=== PATIENT | female | born 1970 | race African-American/Black ===

== ENCOUNTER 2019-05-27 22:07 | Inpatient (IN) | payer BC ==
[2019-05-27] MEDS ORDERED: Adacel (T-DAP) 0.5 ML SYRINGE ONE (22:24)
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
[2019-05-27 22:49] LABS: #Eosinphils 0.2 thou/uL (0.0-0.7); #Lymphocytes 3.8 thou/uL (1.20-3.40); #Neutrophils 10.1 thou/uL (1.40-6.50); %Basophils 0.3 % (0.0-1.0); %Eosinophils 1.3 % (0.0-10.0); %Lymphocytes 25.2 % (21.0-51.0); %Monocytes 6.5 % (0.0-10.0); %Neutrophils 66.7 % (42.0-75.0); Hemoglobin 10.4 g/dL (12.0-16.0); Mean Corpuscular HGB CONC 32.7 g/dL (32.0-36.0); Mean Corpuscular Hemoglobin 24.3 pg (27.0-31.0); Mean Corpuscular Volume 74.3 fL (78.0-98.0); Mean Platelet Volume 8.2 fL (7.4-10.4); Platelet Count 385 thou/uL (130-400); RBC Morphology Normal; Red Blood Cell (RBC) Count 4.28 mill/uL (4.20-5.40); White Blood Cell (WBC) Count 15.2 thou/uL (4.8-10.8)
[2019-05-27 22:52] LABS: ALT (SGPT) 7 U/L (8-55); AST (SGOT) 13 U/L (5-34); Albumin 3.9 g/dL (3.5-5.0); Alkaline Phosphatase 79 U/L (40-110); Anion Gap 13 mmol/L (10-20); BUN (Urea Nitrogen) 12 mg/dL (7.0-18.7); Bilirubin, Total 0.2 mg/dL (0.2-1.2); Calc. Creatinine Clearance 0 mL/min (70-130); Calcium 9.5 mg/dL (7.8-10.44); Carbon Dioxide 22 mmol/L (22-29); Chloride 107 mmol/L (98-107); Estimated GFR-MDRD 67; Globulin 3.6 g/dL (2.4-3.5); Glucose 123 mg/dL (70-105); Potassium 3.3 mmol/L (3.5-5.1); Protein, Total 7.5 g/dL (6.0-8.3); Sodium 139 mmol/L (136-145)
[2019-05-27] MEDS ORDERED: Ondansetron PF 4 MG/2 ML Vial ONE (23:26)
[2019-05-27] MEDS ORDERED: Morphine 4 MG/ML VIAL ONE (23:26)
[2019-05-27 23:38] LABS: Phosphorus 3.2 mg/dL (2.3-4.7)
[2019-05-27] MEDS ORDERED: hydrALAZINE 20 MG/ML VIAL SLOW IVP PRN (23:43)
[2019-05-27] MEDS ORDERED: Dextrose 50% Abboject 50 ML SYRINGE SLOW IVP PRN (23:43)
[2019-05-27] MEDS ORDERED: Morphine 4 MG/ML VIAL SLOW IVP PRN (23:43)
[2019-05-27] MEDS ORDERED: Dextrose 5% in Water 1,000 ML IV PRN (23:43)
[2019-05-27] MEDS ORDERED: Ondansetron PF 4 MG/2 ML Vial IVP PRN (23:43)
[2019-05-27] MEDS ORDERED: traMADol HCl 50 MG TAB PO PRN (23:46)
--- NOTE | 2019-05-27 23:55 | RAD ---
AP CHEST: 05/26/28 HISTORY: Preop evaluation. Lung field appear clear. Heart and mediastinum appear unremarkable. IMPRESSION: No acute abnormality identified. POS: AGW
[2019-05-27] MEDS ORDERED: Acetaminophen 500 MG TAB PO SCH (23:59)
[2019-05-27] MEDS ORDERED: Magnesium 2 GM/50 ML 2 GM in Premix Bag 1 BAG IVPB SCH (23:59)
[2019-05-27] MEDS ORDERED: Potassium Chloride 20 MEQ in Premix Bag 1 BAG IVPB SCH (23:59)
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
[2019-05-28] MEDS ORDERED: Morphine 2 MG/ML SYRINGE SLOW IVP PRN (01:22)
[2019-05-28] MEDS ORDERED: Promethazine HCl 12.5 MG in Sodium Chloride 0.9% 50 ML IVPB PRN (01:23)
[2019-05-28 01:34] VITALS: BMI 41.7
[2019-05-28] MEDS ORDERED: Fentanyl 100 MCG/2 ML VIAL SLOW IVP PRN (01:52)
[2019-05-28] MEDS: traMADol HCl 50 MG TAB PO PRN ×3 (02:13→20:02)
[2019-05-28] MEDS: Acetaminophen 500 MG TAB PO SCH ×4 (02:13→20:02)
[2019-05-28 05:19] LABS: Anion Gap 10 mmol/L (10-20); BUN (Urea Nitrogen) 10 mg/dL (7.0-18.7); Calc. Creatinine Clearance 149 mL/min (70-130); Calcium 8.8 mg/dL (7.8-10.44); Carbon Dioxide 24 mmol/L (22-29); Chloride 107 mmol/L (98-107); Estimated GFR-MDRD 81; Glucose 110 mg/dL (70-105); Magnesium 2.4 mg/dL (1.6-2.6); Phosphorus 3.6 mg/dL (2.3-4.7); Potassium 4.3 mmol/L (3.5-5.1); Sodium 137 mmol/L (136-145)
[2019-05-28] MEDS ORDERED: CEFAZOLIN 2 GM in Premix Bag 1 BAG IVPB SCH ×2 (06:00→14:00)
[2019-05-28] MEDS ORDERED: Ibuprofen 600 MG TAB PO SCH (06:00)
[2019-05-28 06:49] LABS: #Lymphocytes 1.8 thou/uL (1.20-3.40); #Monocytes 0.7 thou/uL (0.11-0.59); #Neutrophils 8.5 thou/uL (1.40-6.50); %Basophils 0.1 % (0.0-1.0); %Eosinophils 0.3 % (0.0-10.0); %Lymphocytes 16.2 % (21.0-51.0); %Neutrophils 77.3 % (42.0-75.0); Hemoglobin 9.7 g/dL (12.0-16.0); Mean Corpuscular HGB CONC 31.1 g/dL (32.0-36.0); Mean Corpuscular Hemoglobin 23.8 pg (27.0-31.0); Mean Corpuscular Volume 76.4 fL (78.0-98.0); Platelet Count 254 thou/uL (130-400); Red Blood Cell (RBC) Count 4.08 mill/uL (4.20-5.40)
[2019-05-28] MEDS: Famotidine/PF 20 mg/2ml Vial SLOW IVP SCH ×2 (08:57→20:02)
[2019-05-28] MEDS ORDERED: Bupivacaine PF 0.5% 30 ML VIAL ONE (10:40)
[2019-05-28] MEDS ORDERED: Fentanyl 100 MCG/2 ML VIAL ONE ×2 (10:58→12:33)
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
[2019-05-28] MEDS ORDERED: Promethazine HCl 25 MG/ML VIAL IM PRN (11:24)
[2019-05-28] MEDS ORDERED: Promethazine HCl 25 MG/ML VIAL SLOW IVP PRN (11:24)
[2019-05-28] MEDS ORDERED: Ondansetron HCl/PF 4 MG/2 ML Vial IVP PRN (11:24)
[2019-05-28] MEDS ORDERED: Ketorolac Tromethamine 30 MG/ML VIAL ONE (11:58)
[2019-05-28] MEDS ORDERED: Succinylcholine Chloride 20 MG/ML 10 ml SYRINGE FS ONE (11:58)
[2019-05-28] MEDS ORDERED: Dexamethasone 20 MG/5 ML VIAL ONE (11:58)
[2019-05-28] MEDS ORDERED: PHENYLEPHRINE-NS 100 MCG/ML 10 ML SYRINGE ONE (11:58)
[2019-05-28] MEDS ORDERED: Lidocaine 1% PF 5 ML VIAL ONE (11:58)
[2019-05-28] MEDS ORDERED: PROPOFOL 200 MG/20 ML VIAL ONE (11:58)
[2019-05-28] MEDS ORDERED: Rocuronium Bromide 10 MG/ML (10ML VIAL) ONE (11:58)
[2019-05-28] MEDS ORDERED: Ondansetron PF 4 MG/2 ML Vial ONE (11:58)
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
[2019-05-28] MEDS: Senokot S 8.6-50 MG TAB PO SCH ×2 (13:32→20:01)
[2019-05-28] MEDS: Polyethylene Glycol 3350 17 GM Packet PO SCH (13:32)
--- NOTE | 2019-05-28 14:16 | RAD ---
2 VIEWS LEFT FOOT: Date: 05/28/2019 HISTORY: Fracture, status post open reduction and internal fixation. FINDINGS: Comminuted fracture of the fifth proximal phalangeal base with associated dislocation again noted. Ob liquely oriented fracture of the fifth metatarsal base noted. Comminuted distal tibial and fibular fr actures again noted with external fixator overlying the calcaneus. Questionable fractures are noted a t the base of the third and fourth metatarsals as well. IMPRESSION: Multiple fracture deformities as detailed above. POS: [facility]
--- NOTE | 2019-05-28 14:17 | RAD ---
2 VIEWS LEFT ANKLE: Date: 05/28/2019 COMPARISON: 05/27/2019. HISTORY: Fracture, status post placement of external fixator. FINDINGS: External fixator overlies mid shaft left tibia. Comminuted, displaced, obliquely oriented fractures o f distal tibia and fibula again noted. IMPRESSION: Interval placement of external fixator. Comminuted distal left tibial and fibular fractures as above. POS: [facility]
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
--- NOTE | 2019-05-28 15:48 | RAD ---
INTRAOPERATIVE IMAGING LEFT ANKLE: Date: 05-28-2019 History: Fracture, status post external fixator placement. FINDINGS: Displaced comminuted distal tibial and fibular fractures are noted. Images demonstrate placement of a n external fixator associated with the calcaneus. IMPRESSION: Intraoperative imaging as above. POS: [facility]
--- NOTE | 2019-05-28 17:13 | CT ---
CT SCAN LEFT LOWER EXTREMITY: Technique: axial tomograms were obtained of the left lower extremity beginning at the mid tibia and f ibula and extending through the left foot. Multiplanar reconstruction. Indications: Previously described comminuted fracture of the distal tibia and fibula. FINDINGS: Comminuted displaced fracture of the distal tibia and fibula again noted, as seen on plain films. Review of the tarsals shows no evidence of tarsal fracture. There is a comminuted fracture with mild displacement of fragments involving the base of the fifth me tatarsal. The other metatarsals appear intact. External fixation device has been place with screw through the posterior calcaneus. Screw also is see n in the mid tibia. IMPRESSION: Comminuted displaced fracture distal tibia and fibula with comminuted fracture involving the base of the fifth metatarsal. POS: AGW
[2019-05-28] MEDS: Cyclobenzaprine 10 MG TAB PO PRN (18:08)
[2019-05-28] MEDS: CEFAZOLIN 2 GM in Premix Bag 1 BAG IVPB SCH (20:03)
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
[2019-05-29] MEDS: Cyclobenzaprine 10 MG TAB PO PRN ×2 (03:54→12:48)
[2019-05-29] MEDS: traMADol HCl 50 MG TAB PO PRN ×2 (03:54→10:24)
[2019-05-29] MEDS: Acetaminophen 500 MG TAB PO SCH ×4 (03:54→20:00)
[2019-05-29] MEDS: CEFAZOLIN 2 GM in Premix Bag 1 BAG IVPB SCH ×3 (03:56→20:00)
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
[2019-05-29 06:00] LABS: Hemoglobin 7.7 g/dL (12.0-16.0); Mean Corpuscular HGB CONC 32.1 g/dL (32.0-36.0); Mean Corpuscular Hemoglobin 24.2 pg (27.0-31.0); Mean Corpuscular Volume 75.3 fL (78.0-98.0); Mean Platelet Volume 8.5 fL (7.4-10.4); Platelet Count 276 thou/uL (130-400); RBC Distribution Width 13.9 % (11.5-14.5); Red Blood Cell (RBC) Count 3.18 mill/uL (4.20-5.40); White Blood Cell (WBC) Count 8.1 thou/uL (4.8-10.8)
[2019-05-29 06:04] LABS: Band 4 % (5-11); Hypochromia SLIGHT = 6-15 cells (100X) (0-5/hpf); Lymphocytes 22 % (21-51); MDiff Complete? YES; Microcytosis SLIGHT = 6-15 cells (100X) (0-5/hpf); Monocytes 7 % (0-10); Neutrophil 67 % (42-75)
[2019-05-29 06:45] LABS: Anion Gap 8 mmol/L (10-20); BUN (Urea Nitrogen) 9 mg/dL (7.0-18.7); Calc. Creatinine Clearance 150 mL/min (70-130); Calcium 7.2 mg/dL (7.8-10.44); Carbon Dioxide 22 mmol/L (22-29); Chloride 112 mmol/L (98-107); Estimated GFR-MDRD 82; Glucose 96 mg/dL (70-105); Magnesium 1.8 mg/dL (1.6-2.6); Phosphorus 2.5 mg/dL (2.3-4.7); Potassium 3.7 mmol/L (3.5-5.1); Sodium 138 mmol/L (136-145)
[2019-05-29] MEDS: Ascorbic Acid 500 mg Chewable Tablet PO SCH ×2 (08:43→20:00)
[2019-05-29] MEDS: Polyethylene Glycol 3350 17 GM Packet PO SCH (08:44)
[2019-05-29] MEDS: Senokot S 8.6-50 MG TAB PO SCH ×2 (08:44→20:00)
[2019-05-29] MEDS: Famotidine/PF 20 mg/2ml Vial SLOW IVP SCH ×2 (08:44→20:00)
[2019-05-29] MEDS: Ferrous Sulfate 325 MG TAB PO SCH ×2 (08:46→17:48)
[2019-05-29] MEDS: Gabapentin 300 MG CAP PO SCH ×3 (08:46→20:00)
--- NOTE | 2019-05-29 08:54 | PRG ---
DATE OF SERVICE: 05/29/2019 SUBJECTIVE: The patient is seen and evaluated in the hospital bed. She is doing well today. Pain is controlled. She has slight numbness on the dorsal aspect of the left foot. Pain is much improved from previously. No adverse events overnight. OBJECTIVE: VITAL SIGNS: Stable. The patient is afebrile. EXTREMITIES: Evaluation of left lower extremity demonstrates dressing is clean, dry, and intact. She has positive FHL and EHL. Pin sites are clean, dry, intact. No tenderness to palpation about the left knee or left hip. She still continues to have some tenderness to palpation in the medial aspect of the right ankle. No open wounds, lacerations, or abrasions. Secondary survey demonstrates no tenderness to palpation of bilateral upper extremities. No pain on passive range of motion of bilateral upper extremities. LABORATORY DATA: Labs were reviewed. White count 15.2, hemoglobin 10.4, hematocrit 31.8, platelets 385. Chemistry; sodium 139, potassium 3.3. chemistries are normal. IMAGING: Postop imaging demonstrates implants in appropriate position, showed that we have obtained a provisional stabilization of her fractures. ASSESSMENT/PLAN: A 48-year-old female showed a left grade 2 open distal tibia and fibula fracture. The patient additionally has third, fourth and fifth metatarsal base fractures, in addition to the left small toe fracture. She will need definitive fixation in the next 10 to 14 days. Should remain on IV antibiotics today and tomorrow. She will then be discharged. We will see her in clinic in approximately 10 to 14 days for planning of our definitive fixation. Job ID: [id number]
[2019-05-29] MEDS ORDERED: Enoxaparin Sodium 40 MG/0.4 ML SYRINGE SC SCH (09:00)
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
[2019-05-30] MEDS: traMADol HCl 50 MG TAB PO PRN ×3 (01:33→15:01)
[2019-05-30] MEDS: Acetaminophen 500 MG TAB PO SCH ×3 (03:40→14:59)
[2019-05-30 05:17] LABS: Anion Gap 11 mmol/L (10-20); BUN (Urea Nitrogen) 11 mg/dL (7.0-18.7); Calc. Creatinine Clearance 152 mL/min (70-130); Calcium 8.4 mg/dL (7.8-10.44); Carbon Dioxide 26 mmol/L (22-29); Chloride 106 mmol/L (98-107); Estimated GFR-MDRD 83; Glucose 95 mg/dL (70-105); Phosphorus 3.1 mg/dL (2.3-4.7); Potassium 3.7 mmol/L (3.5-5.1); Sodium 139 mmol/L (136-145)
[2019-05-30 05:29] LABS: Band 1 % (5-11); Eosinophils 4 % (0-10); Hemoglobin 8.1 g/dL (12.0-16.0); Lymphocytes 43 % (21-51); MDiff Complete? YES; Mean Corpuscular HGB CONC 32.8 g/dL (32.0-36.0); Mean Corpuscular Hemoglobin 24.2 pg (27.0-31.0); Mean Corpuscular Volume 73.8 fL (78.0-98.0); Mean Platelet Volume 8.3 fL (7.4-10.4); Microcytosis SLIGHT = 6-15 cells (100X) (0-5/hpf); Monocytes 5 % (0-10); Neutrophil 47 % (42-75); Platelet Count 303 thou/uL (130-400); Red Blood Cell (RBC) Count 3.34 mill/uL (4.20-5.40); White Blood Cell (WBC) Count 10.2 thou/uL (4.8-10.8)
[2019-05-30] MEDS: Polyethylene Glycol 3350 17 GM Packet PO SCH (07:53)
[2019-05-30] MEDS: Gabapentin 300 MG CAP PO SCH ×2 (07:53→14:59)
[2019-05-30] MEDS: Ascorbic Acid 500 mg Chewable Tablet PO SCH (07:54)
[2019-05-30] MEDS: Senokot S 8.6-50 MG TAB PO SCH (07:54)
[2019-05-30] MEDS: Ferrous Sulfate 325 MG TAB PO SCH (07:54)
--- NOTE | 2019-05-30 08:27 | PRG ---
DATE OF SERVICE: 05/30/2019 SUBJECTIVE: Patient seen and evaluated in the hospital, doing well. No adverse events overnight. OBJECTIVE: VITAL SIGNS: Stable, afebrile. EXTREMITIES: Evaluation left lower extremity demonstrates dressings are clean, dry, and intact. She has positive FHL and EHL activation. No excessive swelling of the calf or foot. She has improved tenderness over the medial aspect of the right ankle. No open wounds noted. Neurovascular sensation intact to light touch in the plantar aspect of left foot. She has numbness and tingling on the dorsal aspect of the left foot in addition to the lateral aspect of the left foot. She is neurovascularly intact in the right lower extremity and bilateral upper extremities. LABORATORY DATA: White count 10.2, hemoglobin 8.1, hematocrit 24.7, platelets of 303. Chemistries within normal limits. ASSESSMENT AND PLAN: A 48-year-old female status post I and D and external fixation of the left open distal tibia and fibular shaft fracture and closed treatment of third, fourth, fifth metatarsal fractures, closed treatment of left small toe fracture. Patient continues to improve at this time. From Orthopedic's perspective, she can be discharged once medically stable. Ancef complete. DVT prophylaxis, Lovenox. Physical Therapy to evaluate and treat, nonweightbearing to left lower extremity. DISPOSITION: As previously noted, patient to be discharged. We will see the patient back in clinic in approximately 10 to 14 days to discuss definitive fixation. Job ID: [id number]
[2019-05-30] MEDS ORDERED: Famotidine 20 MG TAB PO SCH (09:00)
[2019-05-30] MEDS: Cyclobenzaprine 10 MG TAB PO PRN (10:11)
[2019-05-30 13:25] VITALS: BP 124/84; TEMP 98.4
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
== END 2019-05-30 15:24 | disposition home or self-care (01) | DRG 492 ==
LOC: ERS 22:07 → SURG B 23:47
PROVIDERS: ADMIT Surgery; ATTEND Surgery
PROC: 0QSH05Z Reposition Left Tibia with External Fixation Device, Open Approach (ICD-10-PCS; principal; 2019-05-28)
PROC: 0RSVXZZ Reposition Left Metacarpophalangeal Joint, External Approach (ICD-10-PCS; 2019-05-28)
PROC: 0QSRXZZ Reposition Left Toe Phalanx, External Approach (ICD-10-PCS; 2019-05-28)
PROC: 0QSPXZZ Reposition Left Metatarsal, External Approach (ICD-10-PCS; 2019-05-28)
DX: S82.302B Unspecified fracture of lower end of left tibia, initial encounter for open fracture type I or II (principal); S82.402B Unspecified fracture of shaft of left fibula, initial encounter for open fracture type I or II; S06.0X9A Concussion with loss of consciousness of unspecified duration, initial encounter; D62 Acute posthemorrhagic anemia; S92.332A Displaced fracture of third metatarsal bone, left foot, initial encounter for closed fracture; S92.342A Displaced fracture of fourth metatarsal bone, left foot, initial encounter for closed fracture; S92.352A Displaced fracture of fifth metatarsal bone, left foot, initial encounter for closed fracture; S62.317A Displaced fracture of base of fifth metacarpal bone, left hand, initial encounter for closed fracture; S93.401A Sprain of unspecified ligament of right ankle, initial encounter; E87.6 Hypokalemia; S06.0X0A Concussion without loss of consciousness, initial encounter; E83.39 Other disorders of phosphorus metabolism; E83.42 Hypomagnesemia; V89.2XXA Person injured in unspecified motor-vehicle accident, traffic, initial encounter; Z98.51 Tubal ligation status
CPT/HCPCS: 27818; 36415; 36416; 71045; 76000; 80048; 80053; 83605; 83735; 84100; 85007; 85025; 85027; 86850; 86900; 86901; 90471; 90715; 96361; 96374; 96375; C1713; G0390; J0690; J1100; J1885; J2001; J2270; J2405; J2550; J2704; J3010; J3475; J3480; S0020; S0028

== ENCOUNTER 2019-07-20 10:41 | Inpatient (IN) | payer BC ==
[~2019-07-20 10:41] MED LIST: Heparin 1,000 UNITS/ML VIAL ONE
[2019-07-20 11:10] LABS: #Basophils 0.1 thou/uL (0.0-0.2); #Eosinphils 0.1 thou/uL (0.0-0.7); #Lymphocytes 3.5 thou/uL (1.20-3.40); #Monocytes 0.7 thou/uL (0.11-0.59); #Neutrophils 5.2 thou/uL (1.40-6.50); %Basophils 1.1 % (0.0-1.0); %Eosinophils 1.5 % (0.0-10.0); %Lymphocytes 35.8 % (21.0-51.0); %Monocytes 7.4 % (0.0-10.0); %Neutrophils 54.2 % (42.0-75.0); Hemoglobin 9.2 g/dL (12.0-16.0); Mean Corpuscular Hemoglobin 22.9 pg (27.0-31.0); Mean Corpuscular Volume 71.8 fL (78.0-98.0); Mean Platelet Volume 8.1 fL (7.4-10.4); Platelet Count 596 thou/uL (130-400); Red Blood Cell (RBC) Count 4.02 mill/uL (4.20-5.40); White Blood Cell (WBC) Count 9.7 thou/uL (4.8-10.8)
[2019-07-20] MEDS ORDERED: Vancomycin 1 GM/200 ML BAG ONE (11:15)
[2019-07-20 11:29] LABS: ALT (SGPT) 36 U/L (8-55); AST (SGOT) 44 U/L (5-34); Alkaline Phosphatase 175 U/L (40-110); Anion Gap 14 mmol/L (10-20); BUN (Urea Nitrogen) 7 mg/dL (7.0-18.7); Bilirubin, Total 0.4 mg/dL (0.2-1.2); Calc. Creatinine Clearance 0 mL/min (70-130); Carbon Dioxide 23 mmol/L (22-29); Chloride 104 mmol/L (98-107); Estimated GFR-MDRD 79; Globulin 5.4 g/dL (2.4-3.5); Glucose 98 mg/dL (70-105); Potassium 3.2 mmol/L (3.5-5.1); Protein, Total 9.4 g/dL (6.0-8.3); Sodium 138 mmol/L (136-145)
[2019-07-20] MEDS ORDERED: MEROPENEM 1 GM/50 ML 1 GM in Premix Bag 1 BAG IVPB SCH (11:30)
[2019-07-20] MEDS ORDERED: Guaifenesin DM 100-10/5 ML UDCUP PO PRN (13:47)
[2019-07-20] MEDS ORDERED: Calcium Carbonate 500 MG ChewTAB PO PRN (13:47)
[2019-07-20] MEDS ORDERED: Bisacodyl 10 MG SUPP PR PRN (13:47)
[2019-07-20] MEDS ORDERED: Acetaminophen 325 MG TAB PO PRN (13:47)
[2019-07-20] MEDS ORDERED: Ondansetron PF 4 MG/2 ML Vial ONE (15:17)
[2019-07-20] MEDS ORDERED: Morphine 4 MG/ML VIAL ONE (15:17)
[2019-07-20 16:14] VITALS: BMI 38.8
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
--- NOTE | 2019-07-20 17:42 | CT ---
CT LEFT LOWER EXTREMITY WITHOUT CONTRAST: 07/20/19 HISTORY: Postoperative infection. COMPARISON: CT 05/28/19. Evaluation for infection is limited without intravenous contrast and streak artifact. There is extens juma anterior and lateral soft tissue swelling. Comminution of the tibial plafond. Anterior tibial di te and screw fixation hardware. Healing distal fibular fracture with syndesmosis. Adequate cortical p urchase of the posterior malleolus. External fixator tract to the calcaneus. Comminuted fracture base of the fifth metatarsal without sig nificant healing. Degenerative changes of the great toe metatarsophalangeal joint. Comminuted subluxe d fracture of the small proximal phalanx, intra-articular fracture. There are skin reyes on the anterior medial ankle as well as the left hindfoot. There is flecks of debris, calcified degree, the anterolateral recess and anterior recess. There are large articular shanti face gas of the tibial plafond. Early erosive changes of the talar dome. IMPRESSION: 1. Extensive anterolateral soft tissue swelling greater than expected after surgery. Concern for possible infection. Clinical correlation is advised. This evaluation is limited without intravenous contrast. 2. Similar appearance to the proximal fifth metatarsal fracture and fifth proximal phalanx fract ure. 3. 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 This is likely sequela of lack of normal congruence of the tibial plafond as there are numerous large gaps of the articular surface. 4. Possible fluid collection along the medial aspect distal tibial metaphysis on the periosteum measuring 3 cm in AP dimension with a transverse dimension of 1.7 cm and a craniocaudal length of at least 12 cm. This may reflect a subperiosteal hematoma postsurgical in nature. Subperiosteal infecti on is also a possibility although felt somewhat less likely given the lack of adjacent cortical erosi ons. POS: HOME
[2019-07-20] MEDS: Ferrous Sulfate 325 MG TAB PO SCH (17:57)
[2019-07-20] MEDS: HYDROcodone/Acetaminophen 5/325 mg Tablet PO PRN ×2 (18:03→21:55)
[2019-07-20] MEDS: Famotidine 20 MG TAB PO SCH (20:52)
[2019-07-20] MEDS: Senokot S 8.6-50 MG TAB PO SCH (20:52)
[2019-07-20] MEDS: Ascorbic Acid 500 mg Chewable Tablet PO SCH (20:52)
[2019-07-20] MEDS: MEROPENEM 1 GM/50 ML 1 GM in Premix Bag 1 BAG IVPB SCH (21:25)
[2019-07-20] MEDS: Vancomycin HCl 1.75 GM in Sodium Chloride 0.9% 500 ML IVPB SCH (21:56)
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
[2019-07-21] MEDS: HYDROcodone/Acetaminophen 5/325 mg Tablet PO PRN ×3 (02:49→22:11)
[2019-07-21] MEDS: Vancomycin HCl 1.75 GM in Sodium Chloride 0.9% 500 ML IVPB SCH ×2 (04:04→14:35)
[2019-07-21] MEDS: MEROPENEM 1 GM/50 ML 1 GM in Premix Bag 1 BAG IVPB SCH ×3 (06:38→21:04)
[2019-07-21 07:06] LABS: #Basophils 0.1 thou/uL (0.0-0.2); #Eosinphils 0.2 thou/uL (0.0-0.7); #Lymphocytes 2.8 thou/uL (1.20-3.40); #Monocytes 0.6 thou/uL (0.11-0.59); #Neutrophils 3.1 thou/uL (1.40-6.50); %Basophils 1.4 % (0.0-1.0); %Eosinophils 3.4 % (0.0-10.0); %Lymphocytes 41.1 % (21.0-51.0); Mean Corpuscular HGB CONC 30.5 g/dL (32.0-36.0); Mean Corpuscular Hemoglobin 22.6 pg (27.0-31.0); Mean Corpuscular Volume 74.1 fL (78.0-98.0); Mean Platelet Volume 7.9 fL (7.4-10.4); Platelet Count 426 thou/uL (130-400); RBC Distribution Width 15.8 % (11.5-14.5); Red Blood Cell (RBC) Count 3.08 mill/uL (4.20-5.40); White Blood Cell (WBC) Count 6.9 thou/uL (4.8-10.8)
[2019-07-21 07:15] LABS: Anion Gap 11 mmol/L (10-20); BUN (Urea Nitrogen) 4 mg/dL (7.0-18.7); Calc. Creatinine Clearance 184 mL/min (70-130); Calcium 8.3 mg/dL (7.8-10.44); Carbon Dioxide 22 mmol/L (22-29); Chloride 109 mmol/L (98-107); Estimated GFR-MDRD Greater than 90; Glucose 91 mg/dL (70-105); Potassium 3.5 mmol/L (3.5-5.1); Sodium 138 mmol/L (136-145)
[2019-07-21] MEDS ORDERED: NS 0.9% w/ 20 MEQ KCL 1,000 ML/1,000 ML BAG IV SCH (08:15)
[2019-07-21] MEDS: Saccharomyces boulardii 250 MG CAP PO SCH (08:58)
[2019-07-21] MEDS: Famotidine 20 MG TAB PO SCH ×2 (08:58→20:09)
[2019-07-21] MEDS: Senokot S 8.6-50 MG TAB PO SCH ×2 (08:59→20:09)
[2019-07-21] MEDS: Ferrous Sulfate 325 MG TAB PO SCH ×2 (08:59→19:55)
[2019-07-21] MEDS: Ascorbic Acid 500 mg Chewable Tablet PO SCH ×2 (08:59→20:08)
[2019-07-21] MEDS: Enoxaparin Sodium 40 MG/0.4 ML SYRINGE SC SCH (09:02)
[2019-07-21] MEDS ORDERED: cefTRIAXone\\ROCEPHIN 2 GM in Sodium Chloride 0.9% 100 ML IVPB SCH (10:00)
[2019-07-21] MEDS ORDERED: PROPOFOL 200 MG/20 ML VIAL ONE (11:41)
[2019-07-21] MEDS ORDERED: Lidocaine 1% PF 5 ML VIAL ONE (11:41)
[2019-07-21 13:04] LABS: Vancomycin, Trough 24.3 ug/mL
[2019-07-21] MEDS ORDERED: Fentanyl 100 MCG/2 ML VIAL ONE ×4 (13:38→19:54)
[2019-07-21] MEDS ORDERED: Vancomycin 1.5 GRAM/300 ML BAG 1.5 GM/300 ML BAG ONE (16:42)
[2019-07-21] MEDS ORDERED: Midazolam HCl 2 mg/2 ml Vial ONE (18:06)
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
[2019-07-21] MEDS ORDERED: Tobramycin/dex OPTH 2.5 ML BOT ONE (18:22)
[2019-07-21] MEDS ORDERED: Tobramycin/Dexamethasone Ophth Oint 3.5 GM TUBE ONE (18:22)
[2019-07-21] MEDS ORDERED: Tobramycin Sulfate 1.2 GM VIAL ONE (18:23)
--- NOTE | 2019-07-21 18:27 | PRG ---
DATE OF SERVICE: 07/21/2019 SUBJECTIVE: The patient was seen and evaluated. No changes from previously. She received some blood this morning for hemoglobin of 7. She is asymptomatic however. She denies any complaints today with the exception of left lower extremity pain. OBJECTIVE: VITAL SIGNS: Reviewed. Temperature 98.4, pulse 98, respiratory rate 17, O2 saturation 100%, blood pressure 111/76. EXTREMITIES: Evaluation of left lower extremity demonstrates no significant changes from previously. Still has some serous drainage from this proximal aspect of the incision. Left lower extremity swelling is noted. Positive FHL and EHL. No pain on passive stretch of the digits. No signs and symptoms of compartment syndrome at this point in time. NEUROLOGIC: Neurovascular sensation intact to light touch and L4 dermatome. She has some numbness and tingling along L5 and S1 dermatomes of the left lower extremity. Cap refill is less than 2 seconds in all digits. Pulses are difficult to palpate secondary to swelling of the left lower extremity. IMAGING: Previous CT scan demonstrates increased swelling of left lower extremity. No additional complications postoperatively. As noted previously in the operative report, she is missing some bone in the tibial plafond. She developed some changes along the talar dome secondary to incongruity of the joint secondary to her missing bone in the plafond region. LABORATORY DATA: On 07/21/2019, white count 6.9, hemoglobin 7, hematocrit 22.9, platelet count 426. Sodium 138, potassium 3.5, chloride 109, bicarb 22, BUN 4, creatinine 0.67. C-reactive protein is down to 10.7 from 12.3 yesterday. ASSESSMENT AND PLAN: A 48-year-old female with a left ankle postoperative infection. Our plan for today is to I and D the left lower extremity with placement of negative pressure wound therapy device and possible antibiotic bead placement. She will likely need secondary I and D of the left lower extremity to ensure the wound is clean before definitive closure. We explained the risks, benefits, alternatives of the procedure in detail today. Risks include, but not limited to pain, bleeding, persistent infection risk, damage to muscles or nerves, damage to adjacent bones and ligaments, risk of blood clots including IN, PE, DVT, stroke, risk of , risk of damage to surrounding structures, stiffness of the left ankle, and need for additional procedures in the future such as repeat I and D here in the near future. She was explained again today as she has been previously the significant risk of arthritis of the left ankle that is post traumatic in nature, now possibly post infectious in nature as well. She verbalized understanding and wants to proceed. Left ankle was marked as correct operative site. Job ID: [id number]
[2019-07-21] MEDS ORDERED: Promethazine HCl 25 MG/ML VIAL IM PRN (19:27)
[2019-07-21] MEDS ORDERED: Promethazine HCl 25 MG/ML VIAL SLOW IVP PRN (19:27)
[2019-07-21] MEDS ORDERED: Ondansetron HCl/PF 4 MG/2 ML Vial IVP PRN (19:27)
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
[2019-07-21] MEDS: Vancomycin 1.5 GRAM/300 ML BAG 1.5 GM in Premix Bag 1 BAG IVPB SCH ×2 (19:55→23:06)
[2019-07-21] MEDS: Morphine 2 MG/ML SYRINGE SLOW IVP PRN (20:45)
[2019-07-21 21:12] LABS: Hemoglobin 9.1 g/dL (12.0-16.0)
[2019-07-21] MEDS: Ketorolac Tromethamine 30 MG/ML VIAL IVP PRN (23:33)
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
[2019-07-22] MEDS: Morphine 2 MG/ML SYRINGE SLOW IVP PRN ×2 (01:11→10:43)
[2019-07-22] MEDS: MEROPENEM 1 GM/50 ML 1 GM in Premix Bag 1 BAG IVPB SCH ×3 (04:36→22:30)
[2019-07-22] MEDS: Ketorolac Tromethamine 30 MG/ML VIAL IVP PRN (05:12)
[2019-07-22 06:20] LABS: #Eosinphils 0.4 thou/uL (0.0-0.7); #Lymphocytes 2.5 thou/uL (1.20-3.40); #Monocytes 0.6 thou/uL (0.11-0.59); #Neutrophils 4.6 thou/uL (1.40-6.50); %Basophils 0.5 % (0.0-1.0); %Eosinophils 4.7 % (0.0-10.0); %Monocytes 7.6 % (0.0-10.0); %Neutrophils 56.2 % (42.0-75.0); Hemoglobin 8.1 g/dL (12.0-16.0); Mean Corpuscular HGB CONC 32.3 g/dL (32.0-36.0); Mean Corpuscular Hemoglobin 24.1 pg (27.0-31.0); Mean Corpuscular Volume 74.6 fL (78.0-98.0); Platelet Count 437 thou/uL (130-400); RBC Distribution Width 17.2 % (11.5-14.5); Red Blood Cell (RBC) Count 3.38 mill/uL (4.20-5.40); White Blood Cell (WBC) Count 8.2 thou/uL (4.8-10.8)
[2019-07-22 06:45] LABS: Anion Gap 14 mmol/L (10-20); BUN (Urea Nitrogen) 4 mg/dL (7.0-18.7); CRP (Inflammatory) 9.18 mg/dL (= or < 0.5); Calc. Creatinine Clearance 184 mL/min (70-130); Calcium 8.4 mg/dL (7.8-10.44); Carbon Dioxide 21 mmol/L (22-29); Chloride 109 mmol/L (98-107); Estimated GFR-MDRD Greater than 90; Glucose 75 mg/dL (70-105); Potassium 3.7 mmol/L (3.5-5.1); Sodium 140 mmol/L (136-145)
--- NOTE | 2019-07-22 07:25 | PRG ---
DATE OF SERVICE: 07/22/2019 SUBJECTIVE: The patient is seen and evaluated in the hospital room this morning. Pain is controlled. The pain is improved from yesterday prior to surgery. She is tolerating p.o. well. No acute complaints at this time. PHYSICAL EXAMINATION: VITAL SIGNS: Temperature 97.8, pulse 106, blood pressure 132/85, respirations 18, and 100% on room air. EXTREMITIES: Evaluation of left lower extremity demonstrates wound VAC with good seal. She has approximately 150 mL of output. She has positive FHL and EHL. Variable numbness in the left lower extremity as previously noted on our exams. LABORATORY DATA: White count 8.2, hemoglobin 8.1, hematocrit 25.2, platelets 437. Sodium 140, potassium 3.7, chloride 109, bicarb 21, BUN 4, creatinine 0.6. C-reactive protein is down to 9.1 from 12 upon admission. She has good albumin at 4.0. Microcultures and sensitivities are pending at this time. Gram stain demonstrates no organisms at this point. ASSESSMENT/PLAN: A 48-year-old female status post I and D of the left ankle postoperative infection from a grade 3 open distal tibia fracture. We will await cultures and sensitivities. Order was then placed for PICC line consult. She will likely need 4 to 6 weeks of IV antibiotics. I would recommend Infectious Disease consultation as well. She will need case management consult for discharge planning and home health physical therapy in addition to home health for IV antibiotics as an outpatient. We will plan for repeat I and D tomorrow with placement of absorbable antibiotic beads and negative pressure wound therapy device application as well. She verbalized understanding of this. Hopefully, tomorrow her wound is clean. If wound is cleaned tomorrow, we performed definitive closure with placement of again absorbable antibiotic beads and negative pressure wound therapy device. She will be n.p.o. after midnight tonight. We will resume labs tomorrow morning. Job ID: [id number]
[2019-07-22] MEDS: HYDROcodone/Acetaminophen 5/325 mg Tablet PO PRN ×3 (07:34→22:30)
[2019-07-22] MEDS: Senokot S 8.6-50 MG TAB PO SCH ×2 (07:34→20:12)
[2019-07-22] MEDS: Ascorbic Acid 500 mg Chewable Tablet PO SCH ×2 (07:35→20:10)
[2019-07-22] MEDS: Ferrous Sulfate 325 MG TAB PO SCH ×2 (07:35→16:25)
[2019-07-22] MEDS: Enoxaparin Sodium 40 MG/0.4 ML SYRINGE SC SCH (07:35)
[2019-07-22] MEDS: Vancomycin 1.5 GRAM/300 ML BAG 1.5 GM in Premix Bag 1 BAG IVPB SCH ×2 (07:35→16:26)
[2019-07-22] MEDS: Saccharomyces boulardii 250 MG CAP PO SCH (07:35)
[2019-07-22] MEDS: Famotidine 20 MG TAB PO SCH ×2 (07:35→20:11)
[2019-07-22 15:43] LABS: Vancomycin, Trough 33.2 ug/mL
--- NOTE | 2019-07-22 18:00 | PDOC.HOSPP ---
- Subjective Encounter Date: 07/22/19 Encounter Time: 17:50 Subjective: f/u s/p I&D of Grade III L ankle pilon fx/infection with Tobramycin/Vanco beads placed with wound vac POD #2. Currently receiving Vanc/Meropenem IV. - Objective Vital Signs & Weight: Vital Signs (12 hours) Temp Pulse Pulse Resp BP Pulse Ox Pulse Ox 07/22/19 09:53 110 H 100 07/22/19 08:00 97.5 F L 112 H 20 101/69 100 Weight Admit Weight 255 lb 4.8 oz Weight 255 lb 4.8 oz I&O: 07/21/19 07/22/19 07/23/19 06:59 06:59 06:59 Intake Total 1200 Balance 1200 Result Diagrams: 07/22/19 06:03 07/22/19 06:03 Additional Labs: Microbiology 07/21/19 18:36 Leg - Left Bacterial Culture - Preliminary 07/21/19 18:34 Leg - E swab Bacterial Culture - Preliminary 07/20/19 13:00 Ankle - Pending Bacterial Culture - Preliminary Gram Negative Arie Gram Negative Arie#2 Gram Negative Arie#3 07/20/19 10:52 Venous blood - Right Hand Blood Culture - Preliminary NO GROWTH AT 48 HOURS 07/20/19 10:52 Venous blood - Right Arm Blood Culture - Preliminary NO GROWTH AT 48 HOURS Laboratory Tests 07/20/19 07/20/19 07/20/19 10:52 10:52 17:50 Hgb 9.2 L Potassium 3.2 L C-Reactive Protein 12.37 H Vancomycin Trough 07/21/19 07/21/19 07/21/19 06:18 06:18 06:18 Hgb 7.0 L Potassium 3.5 C-Reactive Protein 10.71 H Vancomycin Trough 07/21/19 07/21/19 07/22/19 12:20 21:01 06:03 Hgb 9.1 L Potassium C-Reactive Protein 9.18 H Vancomycin Trough 24.3 07/22/19 15:10 Hgb Potassium C-Reactive Protein Vancomycin Trough 33.2 H* Hospitalist ROS - Medication Medications: Active Medications Generic Name Dose Route Start Last Admin Trade Name Freq PRN Reason Stop Dose Admin Hydrocodone Bitart/Acetaminophen 1 tab 07/20/19 13:47 07/22/19 16:24 [place] 5/325 PO 1 tab Q4H PRN Administration Moderate Pain (4-6) Ascorbic Acid 500 mg 07/20/19 21:00 07/22/19 07:35 Vitamin C PO 500 mg BID ADAL Administration Enoxaparin Sodium 40 mg 07/21/19 09:00 07/22/19 07:35 Lovenox SC 07/23/19 23:59 40 mg 0900 ADAL Administration Famotidine 20 mg 07/20/19 21:00 07/22/19 07:35 Pepcid PO 20 mg BID ADAL Administration Ferrous Sulfate 325 mg 07/20/19 17:00 07/22/19 16:25 Feosol PO 325 mg BID-WM ADAL Administration Meropenem 1 gm/ Device 50 mls @ 200 mls/hr 07/20/19 22:00 07/22/19 13:49 IVPB 50 mls Q8HR ADAL Administration Morphine Sulfate 2 mg 07/20/19 13:47 07/22/19 10:43 Morphine SLOW IVP 2 mg Q4H PRN Administration Severe Pain (7-10) Saccharomyces Boulardii 250 mg 07/21/19 09:00 07/22/19 07:35 Florastor PO 250 mg DAILY ADAL Administration Senna/Docusate Sodium 2 tab 07/20/19 21:00 07/22/19 07:34 Senokot S PO 2 tab BID ADAL Administration - Exam General Appearance: NAD, awake alert Eye: PERRL, anicteric sclera ENT: normocephalic atraumatic, no oropharyngeal lesions Neck: supple, symmetric, no JVD, no thyromegaly, no lymphadenopathy Heart: RRR, no murmur, no gallops, no rubs, normal peripheral pulses Heart - other findings: S1, S2 Respiratory: CTAB, no wheezes, no rales, no ronchi, normal chest expansion Gastrointestinal: soft, non-tender, non-distended, normal bowel sounds, no palpable masses Extremities - other findings: LLE with DAMIEN/surgical/Wound vac in place Skin: normal turgor Neurological: cranial nerve grossly intact, no new deficit Musculoskeletal: normal tone, normal strength Psychiatric: normal affect, A&O x 3 Hosp A/P (1) Sepsis due to cellulitis Code(s): L03.90 - CELLULITIS, UNSPECIFIED; A41.9 - SEPSIS, UNSPECIFIED ORGANISM Status: Acute Plan: Resolving, continue Vanc/Meropenem IV (2) Abscess of skin of left ankle Code(s): L02.416 - CUTANEOUS ABSCESS OF LEFT LOWER LIMB Status: Acute Plan: s/p I&D L ankle abscess POD #2, continue wound vac, WCT for local care (3) Hypokalemia Code(s): E87.6 - HYPOKALEMIA Status: Acute Plan: Resolving, continue KCL supplementation (4) Microcytic anemia Code(s): D50.9 - IRON DEFICIENCY ANEMIA, UNSPECIFIED Status: Chronic Plan: Suspect iron-deficiency, s/p 1u PRBC's - Plan continue antibiotics, PT/OT, social worker palliative care Stable currently WCT for local care Wound Vac therapy Continue Meropenem Hold Vancomycin x 12h then repeat level AM lab: BMP, CBC, CRP, Vanc trough
[2019-07-23] MEDS: Cyclobenzaprine 10 MG TAB PO PRN ×2 (02:16→15:39)
[2019-07-23] MEDS: HYDROcodone/Acetaminophen 5/325 mg Tablet PO PRN ×3 (02:16→15:39)
[2019-07-23] MEDS: MEROPENEM 1 GM/50 ML 1 GM in Premix Bag 1 BAG IVPB SCH ×3 (05:44→21:17)
[2019-07-23 07:16] LABS: #Eosinphils 0.3 thou/uL (0.0-0.7); #Lymphocytes 3.3 thou/uL (1.20-3.40); #Monocytes 0.7 thou/uL (0.11-0.59); #Neutrophils 4.3 thou/uL (1.40-6.50); %Basophils 0.2 % (0.0-1.0); %Lymphocytes 38.3 % (21.0-51.0); %Monocytes 8.4 % (0.0-10.0); %Neutrophils 49.1 % (42.0-75.0); Hemoglobin 8.3 g/dL (12.0-16.0); Mean Corpuscular HGB CONC 32.9 g/dL (32.0-36.0); Mean Corpuscular Hemoglobin 24.3 pg (27.0-31.0); Mean Corpuscular Volume 73.8 fL (78.0-98.0); Mean Platelet Volume 7.9 fL (7.4-10.4); Platelet Count 447 thou/uL (130-400); RBC Distribution Width 17.6 % (11.5-14.5); Red Blood Cell (RBC) Count 3.41 mill/uL (4.20-5.40); White Blood Cell (WBC) Count 8.7 thou/uL (4.8-10.8)
[2019-07-23 07:30] LABS: Vancomycin, Random 9.8 ug/mL (See Comment)
[2019-07-23] MEDS ORDERED: Neomycin-Polymyxin 1 ML AMP ONE (07:31)
[2019-07-23 07:32] LABS: Anion Gap 13 mmol/L (10-20); BUN (Urea Nitrogen) 4 mg/dL (7.0-18.7); CRP (Inflammatory) 10.03 mg/dL (= or < 0.5); Calc. Creatinine Clearance 192 mL/min (70-130); Calcium 8.4 mg/dL (7.8-10.44); Carbon Dioxide 22 mmol/L (22-29); Chloride 108 mmol/L (98-107); Estimated GFR-MDRD Greater than 90; Glucose 91 mg/dL (70-105); Potassium 3.5 mmol/L (3.5-5.1); Sodium 139 mmol/L (136-145)
[2019-07-23] MEDS ORDERED: Fentanyl 100 MCG/2 ML VIAL ONE ×2 (07:59→08:59)
[2019-07-23] MEDS ORDERED: Midazolam HCl 2 mg/2 ml Vial ONE (07:59)
[2019-07-23] MEDS ORDERED: Morphine 2 MG/ML SYRINGE ONE (07:59)
[2019-07-23] MEDS ORDERED: Vancomycin 1 GM in Premix Bag 1 BAG IVPB SCH (08:00)
[2019-07-23] MEDS ORDERED: Tobramycin 80 MG/2 ML VIAL ONE (08:17)
[2019-07-23] MEDS: Ferrous Sulfate 325 MG TAB PO SCH ×2 (08:24→15:39)
[2019-07-23] MEDS: Ascorbic Acid 500 mg Chewable Tablet PO SCH ×2 (08:24→20:40)
[2019-07-23] MEDS: Enoxaparin Sodium 40 MG/0.4 ML SYRINGE SC SCH (08:24)
[2019-07-23] MEDS: Famotidine 20 MG TAB PO SCH ×2 (08:24→20:39)
[2019-07-23] MEDS: Saccharomyces boulardii 250 MG CAP PO SCH (08:24)
[2019-07-23] MEDS: Senokot S 8.6-50 MG TAB PO SCH ×2 (08:25→20:40)
--- NOTE | 2019-07-23 08:29 | PRG ---
DATE OF SERVICE: 07/23/2019 SUBJECTIVE: The patient is seen and evaluated this morning. Her pain has much improved from previously. She has better motion of FHL and EHL. Overall, she is improving per her report. OBJECTIVE: VITAL SIGNS: Temperature 98.8, pulse 99, respirations 20, 96% on room air, blood pressure 101/67. EXTREMITIES: Evaluation of left lower extremity demonstrates wound VAC is intact with a good seal of approximately 150 mL of output. No significant output over the last 12 to 24 hours. She has decreased swelling to the left lower extremity and the left foot today. NEUROVASCULAR: 2+ DP pulses. Cap refill is less than 2 seconds in all digits. She has variable numbness along left lower extremity. Prior to her presentation today from her previous open fracture, she had some injury to the deep peroneal nerve and superficial peroneal nerve. LABORATORY DATA: White count 8.7, hemoglobin 8.3, hematocrit 25.2, platelets 447. Sodium 139, potassium 3.5, chloride 108, bicarb 22, BUN 4, creatinine 0.64. CRP is at 10, slightly up from 9.18 yesterday. Micro, it does appear that she has several gram-negative rods on her Gram stain. Sensitivity and identification are still pending at this time. ASSESSMENT AND PLAN: A 48-year-old female, status post I and D of left ankle postoperative infection with antibiotic bead placement and negative pressure wound therapy device. Given the purulence around her plate and tibia last procedure, we are going to proceed with repeat I and D of the left ankle with placement of absorbable antibiotic beads if the wound is relatively clean. She will need application of negative pressure wound therapy device for her previous slow healing laceration site from her original injury in addition to facilitation of healing of her surgical incision site given high risk area of the anterior medial approach. She verbalized understanding of this. As long as it is clean after this surgical procedure, this will hopefully be the last procedure we need to do. She will remain on IV antibiotics. Again, she is growing some gram-negative rods that we obtained. We will recommend Infectious Disease consultation in addition to PICC line placement. She will likely need 6 weeks of IV antibiotics postoperatively. We will follow the patient while in-house. Job ID: [id number] [facility]
[2019-07-23] MEDS ORDERED: Vancomycin 1.5 GRAM/300 ML BAG 1.5 GM in Premix Bag 1 BAG IVPB SCH ×2 (09:00→15:00)
[2019-07-23] MEDS ORDERED: PROPOFOL 20 ML ONE (09:43)
[2019-07-23] MEDS ORDERED: Ondansetron HCl/PF 4 MG/2 ML Vial IVP PRN (09:49)
[2019-07-23] MEDS ORDERED: Promethazine HCl 25 MG/ML VIAL IM PRN (09:49)
[2019-07-23] MEDS ORDERED: Promethazine HCl 25 MG/ML VIAL SLOW IVP PRN (09:49)
[2019-07-23] MEDS ORDERED: Ondansetron PF 4 MG/2 ML Vial ONE (11:15)
[2019-07-23] MEDS ORDERED: Lidocaine 1% PF 5 ML VIAL ONE (11:15)
[2019-07-23] MEDS ORDERED: PROPOFOL 200 MG/20 ML VIAL ONE (11:15)
--- NOTE | 2019-07-23 13:26 | OP ---
DATE OF PROCEDURE: 07/23/2019 PREOPERATIVE DIAGNOSIS: Left ankle postoperative infection status post grade 3 left open pilon fracture. POSTOPERATIVE DIAGNOSIS: Left ankle postoperative infection status post grade 3 left open pilon fracture. PROCEDURES PERFORMED: 1. Repeat incision and drainage of left ankle infection. 2. Removal of nonbiodegradable antibiotic drug delivery device. 3. Insertion of biodegradable absorbable antibiotic beads with tobramycin and vancomycin. 4. Application of negative pressure wound therapy device greater than 50 cm2. ANESTHESIA: General. FINDINGS: Cloudy fluid within the previous incision site of our area of prior surgery. No loosening of the hardware noted. TOURNIQUET: 300 mmHg at 52 minutes. DRAINS: Christy and Nephew wound VAC. IMPLANTS: Absorbable antibiotic beads with vancomycin and tobramycin. COMPLICATION: None. INDICATIONS FOR PROCEDURE: Ms. Gibbons is a 48-year-old female, who underwent I and D of a left ankle infection approximately 48 hours ago. She had some significant purulence within the previous surgical site of the left ankle extending into the previous area of open fracture as well. She underwent I and D with placement of a nonabsorbable antibiotic beads at that time in addition to wound VAC placement. She is here today for repeat I and D of the left ankle. Risks, benefits, and alternatives of procedure were explained in the preoperative area. Risks include, but not limited to pain, bleeding, infection, risk of damage to underlying vessels or nerves, damage to muscles, tendons, bones and ligaments, risk of blood clots including [place], PE, DVT, stroke, risk of , risk of painful hardware, hardware failure, persistent infection, and the need for additional procedures in the future such as repeat I and D or removal of hardware. Given her missing bone in the tibial plafond from her original injury, she would likely have developed posttraumatic arthritis of the left ankle, likely need ankle fusion in the future as well. We have thoroughly discussed this even prior to her original procedure. The patient verbalized understanding and wants to proceed with our procedure today. Left ankle was marked as correct operative site. DESCRIPTION OF PROCEDURE: The patient was brought back to the operative suite, transferred over to the surgical table in a supine position. She underwent general anesthetic. Once general anesthetic had taken effect, left lower extremity was prepped and draped in clean sterile manner. A formal time-out was conducted indicating correct procedure, correct site, correct patient, all were in agreement. She is on scheduled meropenem and vancomycin at this time. We removed the wound VAC and re-prepped over the area with Betadine-povidone solution. We opened back up the incision site that was loosely approximated. She has some cloudy fluid throughout this area. No significant purulence today, but she did have cloudy fluid likely indicative of the infection. We copiously irrigated the site with normal saline after removal of 16 nonabsorbable antibiotic beads that we had placed from the procedure 48 hours ago. All these were removed and accounted for. At that point, we again copiously irrigated the site with normal saline. On the back table, we ranged our absorbable antibiotic beads with tobramycin and vancomycin. We allowed these beads to set up. After copious irrigation and curetting of all the surfaces, we placed our absorbable antibiotic beads on the anterior, medial and lateral aspect of the tibia in addition to the anterolateral ankle area from her previous open fracture site. We then loosely approximated the subcu layer with a PDS suture. We loosely approximated the skin with some 2-0 nylon in a vertical technique. The subcuticular layer would not hold the many subcuticular sutures. We were unable to do modified Allgower-Donati sutures throughout the area of the wound. At that point, we obtained our wound VAC sponge, placed Adaptic on the undersurface for an incisional vacuum-assisted closure device. The area of 5 x 8 cm on the anterolateral ankle, that has some good granulation tissue, that we also copiously irrigated and placed a wound VAC sponge over this as well. We then obtained the airtight seal with our Ioban, verified by our machine. Total wound VAC sponge area is greater than 50 cm2 given the previous anteromedial approach incision, which is approximately 22 cm in length with it primarily repaired. At that point, we placed her back in a well-padded posterior splint. At that point, she was awakened from the general anesthetic, transferred to the hospital bed, and transferred to PACU in stable condition with no complications during the procedure. ASSESSMENT/PLAN: This is a 48-year-old female, status post repeat I and D with placement of absorbable antibiotic beads and incisional vacuum assisted closure device application for healing purposes. She was growing some gram-negative rods from her wound. We have not yet isolated the specific organisms at this time. Those cultures and sensitivities are pending. We have obtained a Wound Care consult in addition to a PICC line peoples[facility] hcm consultant for placement as well. She will need long-term IV antibiotics and likely transition to p.o. antibiotics postoperatively. We did discuss with her given her significant open injury previously she is at risk for recurrent infection. She does have recurrent infection down the road. We will need to remove all hardware and repeat the process of I and D. Again, we also discussed in detail her almost certainty that she will develop posttraumatic arthritis of that left ankle given the significance of her injury and missing bone at the plafond. She has verbalized understanding of this. If she develops down the road, we will then crisscross that bridge, but again we have discussed this in detail to date. We will follow her while in-house, remain on IV antibiotics at this time, nonweightbearing in left lower extremity. Job ID: [id number]
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
--- NOTE | 2019-07-23 15:55 | PDOC.HOSPP ---
- Subjective Encounter Date: 07/23/19 Encounter Time: 15:45 Subjective: f/u for s/p repeat I&D for L ankle pilon fx with prior I&D with washout and antibiotic beads now with second I&D and replacement of beads. Receiving Meropenem as solo agent currently. c/o of throbbing pain in L ankle post-op receiving [place]. - Objective Vital Signs & Weight: Vital Signs (12 hours) Temp Pulse Resp BP Pulse Ox 07/23/19 15:48 98 F 94 19 133/86 98 07/23/19 11:40 98.7 F 102 H 18 136/83 100 07/23/19 08:00 99 Weight Admit Weight 255 lb 4.8 oz Weight 255 lb 4.8 oz I&O: 07/22/19 07/23/19 07/24/19 06:59 06:59 06:59 Intake Total 1200 Balance 1200 Result Diagrams: 07/23/19 07:03 07/23/19 07:03 Additional Labs: Microbiology 07/21/19 18:36 Leg - Left Bacterial Culture - Preliminary 07/21/19 18:36 Leg - Left Anaerobic Culture - Preliminary Gram Negative Arie 07/21/19 18:36 Leg - Left Bacterial Culture - Preliminary 07/21/19 18:34 Leg - E swab Bacterial Culture - Preliminary 07/21/19 18:34 Leg - E swab Anaerobic Culture - Preliminary Gram Negative Arie 07/21/19 18:34 Leg - E swab Bacterial Culture - Preliminary 07/20/19 13:00 Ankle - Pending Bacterial Culture - Preliminary Gram Negative Arie Gram Negative Arie#2 Gram Negative Arie#3 07/20/19 13:00 Ankle - Pending Bacterial Culture - Preliminary Gram Negative Arie Gram Negative Arie#2 Gram Negative Arie#3 07/20/19 10:52 Venous blood - Right Hand Blood Culture - Preliminary NO GROWTH AT 48 HOURS 07/20/19 10:52 Venous blood - Right Arm Blood Culture - Preliminary NO GROWTH AT 48 HOURS Laboratory Tests 07/20/19 07/20/19 07/20/19 10:52 10:52 17:50 Hgb 9.2 L Potassium 3.2 L C-Reactive Protein 12.37 H Vancomycin Trough 07/21/19 07/21/19 07/21/19 06:18 06:18 06:18 Hgb 7.0 L Potassium 3.5 C-Reactive Protein 10.71 H Vancomycin Trough 07/21/19 07/21/19 07/22/19 12:20 21:01 06:03 Hgb 9.1 L Potassium C-Reactive Protein 9.18 H Vancomycin Trough 24.3 07/22/19 15:10 Hgb Potassium C-Reactive Protein Vancomycin Trough 33.2 H* Hospitalist ROS - Medication Medications: Active Medications Generic Name Dose Route Start Last Admin Trade Name Freq PRN Reason Stop Dose Admin Hydrocodone Bitart/Acetaminophen 1 tab 07/20/19 13:47 07/23/19 15:39 [place] 5/325 PO 1 tab Q4H PRN Administration Moderate Pain (4-6) Ascorbic Acid 500 mg 07/20/19 21:00 07/23/19 08:24 Vitamin C PO Not Given BID [facility] Cyclobenzaprine HCl 10 mg 07/20/19 13:47 07/23/19 15:39 Flexeril PO 10 mg TIDPRN PRN Administration Muscle Spasm Enoxaparin Sodium 40 mg 07/21/19 09:00 07/23/19 08:24 Lovenox SC 07/23/19 23:59 Not Given 0900 [facility] Famotidine 20 mg 07/20/19 21:00 07/23/19 08:24 Pepcid PO Not Given BID [facility] Ferrous Sulfate 325 mg 07/20/19 17:00 07/23/19 15:39 Feosol PO 325 mg BID-WM ADAL Administration Meropenem 1 gm/ Device 50 mls @ 200 mls/hr 07/20/19 22:00 07/23/19 14:00 IVPB 50 mls Q8HR ADAL Administration Morphine Sulfate 2 mg 07/20/19 13:47 07/22/19 10:43 Morphine SLOW IVP 2 mg Q4H PRN Administration Severe Pain (7-10) Saccharomyces Boulardii 250 mg 07/21/19 09:00 07/23/19 08:24 Florastor PO Not Given DAILY [facility] Senna/Docusate Sodium 2 tab 07/20/19 21:00 07/23/19 08:25 Senokot S PO Not Given BID ADAL - Exam General Appearance: NAD, awake alert Eye: PERRL, anicteric sclera ENT: normocephalic atraumatic, no oropharyngeal lesions Neck: supple, symmetric, no JVD, no thyromegaly, no lymphadenopathy Heart: RRR, no murmur, no gallops, no rubs, normal peripheral pulses Heart - other findings: S1, S2 Respiratory: CTAB, no wheezes, no rales, no ronchi, normal chest expansion, no tachypnea Gastrointestinal: soft, non-tender, non-distended, normal bowel sounds, no palpable masses Extremities - other findings: LLE with surgical dressing/wound vac in place Skin: normal turgor Neurological: cranial nerve grossly intact Musculoskeletal: normal tone, generalized weakness Psychiatric: normal affect, A&O x 3 Hosp A/P (1) Sepsis due to cellulitis Code(s): L03.90 - CELLULITIS, UNSPECIFIED; A41.9 - SEPSIS, UNSPECIFIED ORGANISM Status: Acute Plan: s/p 2nd I&D of L ankle open fx with placement of absorbable Vancomycin/ Tobramycin beads, continue Wound vac, local wound care, continue Meropenem (2) Abscess of skin of left ankle Code(s): L02.416 - CUTANEOUS ABSCESS OF LEFT LOWER LIMB Status: Acute Plan: See above #1 (3) Hypokalemia Code(s): E87.6 - HYPOKALEMIA Status: Acute Plan: Improved, KCL supplementation (4) Microcytic anemia Code(s): D50.9 - IRON DEFICIENCY ANEMIA, UNSPECIFIED Status: Chronic - Plan continue antibiotics, PT/OT, social science manager Stable currently WCT for local care Wound Vac therapy Continue Meropenem Vancomycin d/c AM lab: H/H, CRP, Vanc trough
[2019-07-23] MEDS ORDERED: Ketorolac Tromethamine 30 MG/ML VIAL IVP SCH (16:15)
[2019-07-23] MEDS: Ondansetron PF 4 MG/2 ML Vial IVP PRN (16:16)
[2019-07-23] MEDS: Ketorolac Tromethamine 30 MG/ML VIAL IVP SCH (23:42)
[2019-07-24] MEDS: HYDROcodone/Acetaminophen 5/325 mg Tablet PO PRN ×2 (04:32→19:39)
[2019-07-24 05:17] LABS: Hemoglobin 7.8 g/dL (12.0-16.0); Platelet Count 474 thou/uL (130-400)
[2019-07-24] MEDS: Ketorolac Tromethamine 30 MG/ML VIAL IVP SCH ×4 (05:33→23:27)
[2019-07-24] MEDS ORDERED: Meropenem 1 GM in Sodium Chloride 0.9% 100 ML IVPB SCH (06:00)
--- NOTE | 2019-07-24 10:02 | SPC ---
PICC placement left upper extremity sonographic guided HISTORY: Osteomyelitis. FINDINGS: After explaining the procedure and answering all questions, the left upper extremity was pr epped and draped in usual sterile fashion. Sterile technique, buffered local anesthesia, sonographic guidance, and a 22-gauge needle were used to carefully access the left brachial vein. Sta ndard technique was used to place the tip of a 5 Telugu single lumen PICC so that the tip lies at the level of the cavoatrial junction. Catheter was flushed and secured externally. Patient tolerated the procedure well and was returned in unchanged condition. Fluoroscopy time 0 seconds. IMPRESSION : Left upper extremity PICC is ready for use.
[2019-07-24] MEDS: Famotidine 20 MG TAB PO SCH ×2 (10:13→19:40)
[2019-07-24] MEDS: Saccharomyces boulardii 250 MG CAP PO SCH (10:13)
[2019-07-24] MEDS: Senokot S 8.6-50 MG TAB PO SCH ×2 (10:14→19:40)
[2019-07-24] MEDS: Ascorbic Acid 500 mg Chewable Tablet PO SCH ×2 (10:18→19:40)
[2019-07-24] MEDS: Ferrous Sulfate 325 MG TAB PO SCH ×2 (10:18→17:36)
[2019-07-24] MEDS ORDERED: MEROPENEM 1 GM/50 ML 1 GM in Premix Bag 1 BAG IVPB SCH (14:00)
--- NOTE | 2019-07-24 15:12 | PDOC.HOSPP ---
- Subjective Encounter Date: 07/24/19 Encounter Time: 15:10 Subjective: f/u for complicated L ankle wound infection s/p ORIF with plates and now I&D x 2 with antibiotic bead placement and IV Meropenem. Some intermittent pain. s/p LUE PICC line placement - Objective Vital Signs & Weight: Vital Signs (12 hours) Temp Pulse Resp BP BP Pulse Ox 07/24/19 12:43 97.7 F 94 18 114/76 100 07/24/19 10:15 99 07/24/19 07:28 98.4 F 90 20 100/68 100 07/24/19 04:04 98.4 F 97 16 127/79 99 Weight Admit Weight 255 lb 4.8 oz Weight 255 lb 4.8 oz I&O: 07/23/19 07/24/19 07/25/19 06:59 06:59 06:59 Intake Total 750 Balance 750 Result Diagrams: 07/24/19 04:51 07/23/19 07:03 Additional Labs: Microbiology 07/21/19 18:36 Leg - Left Bacterial Culture - Final 07/21/19 18:36 Leg - Left Anaerobic Culture - Final Serratia marcescens 07/21/19 18:34 Leg - E swab Bacterial Culture - Final 07/21/19 18:34 Leg - E swab Anaerobic Culture - Final Serratia marcescens 07/21/19 18:36 Leg - Left Bacterial Culture - Preliminary 07/21/19 18:36 Leg - Left Anaerobic Culture - Preliminary Gram Negative Arie 07/21/19 18:36 Leg - Left Bacterial Culture - Preliminary 07/21/19 18:34 Leg - E swab Bacterial Culture - Preliminary 07/21/19 18:34 Leg - E swab Anaerobic Culture - Preliminary Gram Negative Arie 07/21/19 18:34 Leg - E swab Bacterial Culture - Preliminary 07/20/19 13:00 Ankle - Pending Bacterial Culture - Preliminary Gram Negative Arie Gram Negative Arie#2 Gram Negative Arie#3 07/20/19 13:00 Ankle - Pending Bacterial Culture - Preliminary Gram Negative Arie Gram Negative Arie#2 Gram Negative Arie#3 07/20/19 13:00 Ankle - Pending Bacterial Culture - Preliminary Enterobacter cancerogenus Gram Negative Arie#3 07/20/19 10:52 Venous blood - Right Hand Blood Culture - Preliminary NO GROWTH AT 48 HOURS 07/20/19 10:52 Venous blood - Right Arm Blood Culture - Preliminary NO GROWTH AT 48 HOURS Laboratory Tests 07/20/19 07/20/19 07/20/19 10:52 10:52 17:50 Hgb 9.2 L Potassium 3.2 L C-Reactive Protein 12.37 H Vancomycin Trough 07/21/19 07/21/19 07/21/19 06:18 06:18 06:18 Hgb 7.0 L Potassium 3.5 C-Reactive Protein 10.71 H Vancomycin Trough 07/21/19 07/21/19 07/22/19 12:20 21:01 06:03 Hgb 9.1 L Potassium C-Reactive Protein 9.18 H Vancomycin Trough 24.3 07/22/19 15:10 Hgb Potassium C-Reactive Protein Vancomycin Trough 33.2 H* Hospitalist ROS - Medication Medications: Active Medications Generic Name Dose Route Start Last Admin Trade Name Freq PRN Reason Stop Dose Admin Hydrocodone Bitart/Acetaminophen 1 tab 07/20/19 13:47 07/24/19 04:32 Rice 5/325 PO 1 tab Q4H PRN Administration Moderate Pain (4-6) Ascorbic Acid 500 mg 07/20/19 21:00 07/24/19 10:18 Vitamin C PO 500 mg BID ADAL Administration Cyclobenzaprine HCl 10 mg 07/20/19 13:47 07/23/19 15:39 Flexeril PO 10 mg TIDPRN PRN Administration Muscle Spasm Famotidine 20 mg 07/20/19 21:00 07/24/19 10:13 Pepcid PO 20 mg BID ADAL Administration Ferrous Sulfate 325 mg 07/20/19 17:00 07/24/19 10:18 Feosol PO 325 mg BID-WM ADAL Administration Meropenem 1 gm/ Device 50 mls @ 100 mls/hr 07/24/19 14:00 07/24/19 15:00 IVPB 50 mls Q8HR ADAL Administration Ketorolac Tromethamine 30 mg 07/23/19 23:59 07/24/19 11:21 Toradol IVP 07/28/19 23:59 30 mg Q6HR ADAL Administration Morphine Sulfate 2 mg 07/20/19 13:47 07/22/19 10:43 Morphine SLOW IVP 2 mg Q4H PRN Administration Severe Pain (7-10) Ondansetron HCl 4 mg 07/20/19 13:47 07/23/19 16:16 Zofran IVP 4 mg Q6H PRN Administration Nausea/Vomiting Saccharomyces Dorai 250 mg 07/21/19 09:00 07/24/19 10:13 Florastor PO 250 mg DAILY ADAL Administration Senna/Docusate Sodium 2 tab 07/20/19 21:00 07/24/19 10:14 Senokot S PO 2 tab BID ADAL Administration - Exam General Appearance: NAD, awake alert Eye: PERRL, anicteric sclera ENT: normocephalic atraumatic, no oropharyngeal lesions Neck: supple, symmetric, no JVD, no thyromegaly Heart: RRR, no murmur, no gallops, no rubs, normal peripheral pulses Heart - other findings: S1, S2 Respiratory: CTAB, no wheezes, no rales, no ronchi, normal chest expansion Gastrointestinal: soft, non-tender, non-distended, normal bowel sounds, no palpable masses Extremities: no cyanosis Extremities - other findings: LLE with wound vac/dressing in place, + edema, LUE with PICC line Skin: normal turgor Neurological: cranial nerve grossly intact, no new deficit Musculoskeletal: normal tone, normal strength, no muscle wasting Psychiatric: normal affect, A&O x 3 Hosp A/P (1) Sepsis due to cellulitis Code(s): L03.90 - CELLULITIS, UNSPECIFIED; A41.9 - SEPSIS, UNSPECIFIED ORGANISM Status: Acute Plan: s/p I&D x 2 for L ankle/LE with current IV Meropenem and antiobiotic bead placement with Tobramycin/Vancomycin, plan for outpt IV abx therapy using LUE PICC line (2) Abscess of skin of left ankle Code(s): L02.416 - CUTANEOUS ABSCESS OF LEFT LOWER LIMB Status: Acute Plan: See #1 above (3) Hypokalemia Code(s): E87.6 - HYPOKALEMIA Status: Acute (4) Microcytic anemia Code(s): D50.9 - IRON DEFICIENCY ANEMIA, UNSPECIFIED Status: Chronic Plan: s/p 1u PRBC's - Plan continue antibiotics, PT/OT, oncology social work, incentive spirometry, out of bed/ ambulate Stable currently WCT for local care Wound Vac therapy Continue Meropenem Vancomycin d/c Continue Florastor 250mg daily CM for coordination of outpt infusion services AM lab: H/H, CRP, Vanc trough
--- NOTE | 2019-07-24 15:49 | PRG ---
DATE OF SERVICE: 07/24/2019 SUBJECTIVE: The patient is seen and evaluated in her hospital bed. Overall, she is doing well today. Denies any fevers, chills, nausea or vomiting. She is tolerating p.o. intake. She just had her PICC line placed. OBJECTIVE: VITAL SIGNS: Stable. The patient is afebrile. EXTREMITIES: Evaluation of left lower extremity demonstrates splint is clean, dry, intact. Minimal output within the left foot. She had a left ankle wound VAC. She has positive FHL and EHL with some weakness in the EHL as noted previously. Cap refill is less 2 seconds in all digits. She has some variable numbness along the left foot consistent with prior exams. LABORATORY DATA: Hemoglobin 7.8, hematocrit 24.1, and platelets 474. Sodium 139, potassium 3.5, chloride 108, bicarb 22, BUN 4, and creatinine 0.64. CRP is down to 9 from 10 yesterday. Micro: Microbiology reports demonstrates Serratia marcescens, susceptibilities have resulted. Second bacteria is a gram-negative elvia Enterobacter cancerogenus. ASSESSMENT AND PLAN: This is a 48-year-old female status post repeat I and D of left ankle with absorbable antibiotic beads and application of negative pressure wound therapy device. Case Management has been consulted for home health IV antibiotics and home health wound VAC changes. She will need to be discharged with a home wound VAC. She will be nonweightbearing in left lower extremity. We have consulted Dr. Becerra, our infectious disease specialist. He is going to provide us recommendations on IV antibiotics in the length. She did obtain a PICC line consult today. From Orthopedic's perspective, she can be discharged once this is arranged. We will see her in clinic in approximately 2 weeks time. She will likely need some outpatient wound care, which has already been arranged for the patient. I will contact the Wound Care Services as well days. Again, Orthopedics will follow peripherally at this time. Job ID: [id number]
[2019-07-25] MEDS: HYDROcodone/Acetaminophen 5/325 mg Tablet PO PRN (04:52)
[2019-07-25] MEDS: Ketorolac Tromethamine 30 MG/ML VIAL IVP SCH ×4 (06:05→23:21)
[2019-07-25 06:23] LABS: Hemoglobin 7.8 g/dL (12.0-16.0); Platelet Count 477 thou/uL (130-400)
[2019-07-25] MEDS: Saccharomyces boulardii 250 MG CAP PO SCH (08:28)
[2019-07-25] MEDS: Ferrous Sulfate 325 MG TAB PO SCH ×2 (08:29→18:05)
[2019-07-25] MEDS: Senokot S 8.6-50 MG TAB PO SCH ×2 (08:29→19:53)
[2019-07-25] MEDS: Famotidine 20 MG TAB PO SCH ×2 (08:29→19:53)
[2019-07-25] MEDS: Ascorbic Acid 500 mg Chewable Tablet PO SCH ×2 (08:30→19:53)
[2019-07-25] MEDS: Morphine 2 MG/ML SYRINGE SLOW IVP PRN (10:19)
--- NOTE | 2019-07-25 16:55 | PDOC.HOSPP ---
- Subjective Encounter Date: 07/25/19 Encounter Time: 16:45 Subjective: f/u for LLE cellulitis/wound infection s/p I&D x 2 with cx showing Serratia/ Enterobacter spp on Meropenem with plans to transition to Levaquin for home. Awaiting coordination for wound vac and outpt HH with wound care. - Objective Vital Signs & Weight: Vital Signs (12 hours) Temp Pulse Resp BP Pulse Ox 07/25/19 11:40 97.7 F 85 17 113/79 100 07/25/19 07:36 98.0 F 97 18 126/76 97 Weight Admit Weight 255 lb 4.8 oz Weight 255 lb 4.8 oz I&O: 07/24/19 07/25/19 07/26/19 06:59 06:59 06:59 Intake Total 750 1700 Balance 750 1700 Result Diagrams: 07/25/19 06:11 07/23/19 07:03 Additional Labs: Microbiology 07/21/19 18:36 Leg - Left Bacterial Culture - Final 07/21/19 18:36 Leg - Left Anaerobic Culture - Final Serratia marcescens 07/21/19 18:34 Leg - E swab Bacterial Culture - Final 07/21/19 18:34 Leg - E swab Anaerobic Culture - Final Serratia marcescens 07/21/19 18:36 Leg - Left Bacterial Culture - Preliminary 07/21/19 18:36 Leg - Left Anaerobic Culture - Preliminary Gram Negative Arie 07/21/19 18:36 Leg - Left Bacterial Culture - Preliminary 07/21/19 18:34 Leg - E swab Bacterial Culture - Preliminary 07/21/19 18:34 Leg - E swab Anaerobic Culture - Preliminary Gram Negative Arie 07/21/19 18:34 Leg - E swab Bacterial Culture - Preliminary 07/20/19 13:00 Ankle - Pending Bacterial Culture - Preliminary Gram Negative Arie Gram Negative Arie#2 Gram Negative Arie#3 07/20/19 13:00 Ankle - Pending Bacterial Culture - Preliminary Gram Negative Arie Gram Negative Arie#2 Gram Negative Arie#3 07/20/19 13:00 Ankle - Pending Bacterial Culture - Preliminary Enterobacter cancerogenus Gram Negative Arie#3 07/20/19 10:52 Venous blood - Right Hand Blood Culture - Preliminary NO GROWTH AT 48 HOURS 07/20/19 10:52 Venous blood - Right Arm Blood Culture - Preliminary NO GROWTH AT 48 HOURS Laboratory Tests 07/20/19 07/20/19 07/20/19 10:52 10:52 17:50 Hgb 9.2 L Potassium 3.2 L C-Reactive Protein 12.37 H Vancomycin Trough 07/21/19 07/21/19 07/21/19 06:18 06:18 06:18 Hgb 7.0 L Potassium 3.5 C-Reactive Protein 10.71 H Vancomycin Trough 07/21/19 07/21/19 07/22/19 12:20 21:01 06:03 Hgb 9.1 L Potassium C-Reactive Protein 9.18 H Vancomycin Trough 24.3 07/22/19 15:10 Hgb Potassium C-Reactive Protein Vancomycin Trough 33.2 H* Hospitalist ROS - Medication Medications: Active Medications Generic Name Dose Route Start Last Admin Trade Name Freq PRN Reason Stop Dose Admin Hydrocodone Bitart/Acetaminophen 1 tab 07/20/19 13:47 07/25/19 04:52 [place] 5/325 PO 1 tab Q4H PRN Administration Moderate Pain (4-6) Ascorbic Acid 500 mg 07/20/19 21:00 07/25/19 08:30 Vitamin C PO 500 mg BID ADAL Administration Cyclobenzaprine HCl 10 mg 07/20/19 13:47 07/23/19 15:39 Flexeril PO 10 mg TIDPRN PRN Administration Muscle Spasm Famotidine 20 mg 07/20/19 21:00 07/25/19 08:29 Pepcid PO 20 mg BID ADAL Administration Ferrous Sulfate 325 mg 07/20/19 17:00 07/25/19 08:29 Feosol PO 325 mg BID- ADAL Administration Ketorolac Tromethamine 30 mg 07/23/19 23:59 07/25/19 11:00 Toradol IVP 07/28/19 23:59 30 mg Q6HR ADAL Administration Levofloxacin 750 mg 07/25/19 06:00 07/25/19 04:51 Levaquin PO 750 mg 0600 ADAL Administration Morphine Sulfate 2 mg 07/20/19 13:47 07/25/19 10:19 Morphine SLOW IVP 2 mg Q4H PRN Administration Severe Pain (7-10) Ondansetron HCl 4 mg 07/20/19 13:47 07/23/19 16:16 Zofran IVP 4 mg Q6H PRN Administration Nausea/Vomiting Saccharomyces Alldii 250 mg 07/21/19 09:00 07/25/19 08:28 Florastor PO 250 mg DAILY ADAL Administration Senna/Docusate Sodium 2 tab 07/20/19 21:00 07/25/19 08:29 Senokot S PO 2 tab BID ADAL Administration - Exam General Appearance: NAD, awake alert Eye: PERRL, anicteric sclera ENT: normocephalic atraumatic, no oropharyngeal lesions Neck: supple, symmetric, no JVD, no thyromegaly, no lymphadenopathy Heart: RRR, no murmur, no gallops, no rubs, normal peripheral pulses Heart - other findings: S1, S2 Respiratory: CTAB, no wheezes, no rales, no ronchi, normal chest expansion Gastrointestinal: soft, non-tender, non-distended, normal bowel sounds, no palpable masses Extremities: no cyanosis, no clubbing Extremities - other findings: LLE wound vac in place with dressings Skin: normal turgor Neurological: cranial nerve grossly intact, no new deficit Musculoskeletal: normal tone, normal strength, no muscle wasting Psychiatric: normal affect, A&O x 3 Hosp A/P (1) Sepsis due to cellulitis Code(s): L03.90 - CELLULITIS, UNSPECIFIED; A41.9 - SEPSIS, UNSPECIFIED ORGANISM Status: Acute Plan: Continue Meropenem IV with plans to convert to Levaquin for home, local WCT, wound vac (2) Abscess of skin of left ankle Code(s): L02.416 - CUTANEOUS ABSCESS OF LEFT LOWER LIMB Status: Acute Plan: See above (3) Hypokalemia Code(s): E87.6 - HYPOKALEMIA Status: Acute (4) Microcytic anemia Code(s): D50.9 - IRON DEFICIENCY ANEMIA, UNSPECIFIED Status: Chronic - Plan continue antibiotics, PT/OT, 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
[2019-07-26] MEDS: HYDROcodone/Acetaminophen 5/325 mg Tablet PO PRN ×3 (04:23→21:30)
[2019-07-26] MEDS: Ketorolac Tromethamine 30 MG/ML VIAL IVP SCH ×4 (05:45→23:30)
[2019-07-26] MEDS: Ferrous Sulfate 325 MG TAB PO SCH ×2 (08:29→17:51)
[2019-07-26] MEDS: Famotidine 20 MG TAB PO SCH ×2 (08:29→20:36)
[2019-07-26] MEDS: Ascorbic Acid 500 mg Chewable Tablet PO SCH ×2 (08:29→20:36)
[2019-07-26] MEDS: Saccharomyces boulardii 250 MG CAP PO SCH (08:30)
[2019-07-26] MEDS: Senokot S 8.6-50 MG TAB PO SCH ×2 (08:38→20:36)
--- NOTE | 2019-07-26 12:29 | PDOC.HOSPP ---
- Subjective Encounter Date: 07/26/19 Encounter Time: 12:25 Subjective: f/u for LLE wound infection with wound vac receiving Levaquin po. States some pain in the ankle but overall much better since admit. Awaiting wound vac coordination and HH options. - Objective Vital Signs & Weight: Vital Signs (12 hours) Temp Pulse Resp BP Pulse Ox 07/26/19 10:50 98.4 F 95 19 134/86 98 07/26/19 08:00 97 07/26/19 07:38 98.1 F 93 18 128/87 97 07/26/19 04:00 98.8 F 95 18 143/86 H 98 Weight Admit Weight 255 lb 4.8 oz Weight 255 lb 4.8 oz I&O: 07/25/19 07/26/19 07/27/19 06:59 06:59 06:59 Intake Total 1700 500 Balance 1700 500 Result Diagrams: 07/25/19 06:11 07/23/19 07:03 Additional Labs: Microbiology 07/21/19 18:36 Leg - Left Bacterial Culture - Final 07/21/19 18:36 Leg - Left Anaerobic Culture - Final Serratia marcescens 07/21/19 18:34 Leg - E swab Bacterial Culture - Final 07/21/19 18:34 Leg - E swab Anaerobic Culture - Final Serratia marcescens 07/21/19 18:36 Leg - Left Bacterial Culture - Preliminary 07/21/19 18:36 Leg - Left Anaerobic Culture - Preliminary Gram Negative Arie 07/21/19 18:36 Leg - Left Bacterial Culture - Preliminary 07/21/19 18:34 Leg - E swab Bacterial Culture - Preliminary 07/21/19 18:34 Leg - E swab Anaerobic Culture - Preliminary Gram Negative Arie 07/21/19 18:34 Leg - E swab Bacterial Culture - Preliminary 07/20/19 13:00 Ankle - Pending Bacterial Culture - Preliminary Gram Negative Arie Gram Negative Arie#2 Gram Negative Arie#3 07/20/19 13:00 Ankle - Pending Bacterial Culture - Preliminary Gram Negative Arie Gram Negative Arie#2 Gram Negative Arie#3 07/20/19 13:00 Ankle - Pending Bacterial Culture - Preliminary Enterobacter cancerogenus Gram Negative Arie#3 07/20/19 10:52 Venous blood - Right Hand Blood Culture - Preliminary NO GROWTH AT 48 HOURS 07/20/19 10:52 Venous blood - Right Arm Blood Culture - Preliminary NO GROWTH AT 48 HOURS Laboratory Tests 07/20/19 07/20/19 07/20/19 10:52 10:52 17:50 Hgb 9.2 L Potassium 3.2 L C-Reactive Protein 12.37 H Vancomycin Trough 07/21/19 07/21/19 07/21/19 06:18 06:18 06:18 Hgb 7.0 L Potassium 3.5 C-Reactive Protein 10.71 H Vancomycin Trough 07/21/19 07/21/19 07/22/19 12:20 21:01 06:03 Hgb 9.1 L Potassium C-Reactive Protein 9.18 H Vancomycin Trough 24.3 07/22/19 15:10 Hgb Potassium C-Reactive Protein Vancomycin Trough 33.2 H* Hospitalist ROS - Medication Medications: Active Medications Generic Name Dose Route Start Last Admin Trade Name Freq PRN Reason Stop Dose Admin Hydrocodone Bitart/Acetaminophen 1 tab 07/20/19 13:47 07/26/19 11:13 [place] 5/325 PO 1 tab Q4H PRN Administration Moderate Pain (4-6) Ascorbic Acid 500 mg 07/20/19 21:00 07/26/19 08:29 Vitamin C PO 500 mg BID ADAL Administration Cyclobenzaprine HCl 10 mg 07/20/19 13:47 07/23/19 15:39 Flexeril PO 10 mg TIDPRN PRN Administration Muscle Spasm Famotidine 20 mg 07/20/19 21:00 07/26/19 08:29 Pepcid PO 20 mg BID ADAL Administration Ferrous Sulfate 325 mg 07/20/19 17:00 07/26/19 08:29 Feosol PO 325 mg BID-WM ADAL Administration Ketorolac Tromethamine 30 mg 07/23/19 23:59 07/26/19 05:45 Toradol IVP 07/28/19 23:59 30 mg Q6HR ADAL Administration Levofloxacin 750 mg 07/25/19 06:00 07/26/19 05:46 Levaquin PO 750 mg 0600 ADAL Administration Morphine Sulfate 2 mg 07/20/19 13:47 07/25/19 10:19 Morphine SLOW IVP 2 mg Q4H PRN Administration Severe Pain (7-10) Ondansetron HCl 4 mg 07/20/19 13:47 07/23/19 16:16 Zofran IVP 4 mg Q6H PRN Administration Nausea/Vomiting Saccharomyces Boulardii 250 mg 07/21/19 09:00 07/26/19 08:30 Florastor PO 250 mg DAILY ADAL Administration Senna/Docusate Sodium 2 tab 07/20/19 21:00 07/26/19 08:38 Senokot S PO Not Given BID ADAL - Exam General Appearance: NAD, awake alert Eye: PERRL, anicteric sclera ENT: normocephalic atraumatic, no oropharyngeal lesions Neck: supple, symmetric, no JVD, no thyromegaly, no lymphadenopathy Heart: RRR, no murmur, no gallops, no rubs, normal peripheral pulses Heart - other findings: S1, S2 Respiratory: CTAB, no wheezes, no rales, no ronchi, normal chest expansion Gastrointestinal: soft, non-tender, non-distended, normal bowel sounds Extremities: no cyanosis, no clubbing Extremities - other findings: LLE with DAMIEN wrap dressing/Wound vac in place Skin: normal turgor Neurological: cranial nerve grossly intact, no new deficit Musculoskeletal: normal tone, generalized weakness Psychiatric: normal affect, A&O x 3 Hosp A/P (1) Sepsis due to cellulitis Code(s): L03.90 - CELLULITIS, UNSPECIFIED; A41.9 - SEPSIS, UNSPECIFIED ORGANISM Status: Acute Plan: LLE with wound vac in place, continue Levaquin (2) Abscess of skin of left ankle Code(s): L02.416 - CUTANEOUS ABSCESS OF LEFT LOWER LIMB Status: Acute Plan: See above (3) Hypokalemia Code(s): E87.6 - HYPOKALEMIA Status: Acute (4) Microcytic anemia Code(s): D50.9 - IRON DEFICIENCY ANEMIA, UNSPECIFIED Status: Chronic - Plan continue antibiotics, PT/OT, social worker psychiatric, out of bed/ambulate Stable currently WCT for local care Wound Vac therapy for home pending Continue Levaquin Continue Florastor 250mg daily CM for coordination of HH with wound care Likely d/c in 24h
[2019-07-26] MEDS: Ondansetron PF 4 MG/2 ML Vial IVP PRN (12:48)
[2019-07-27] MEDS: Ketorolac Tromethamine 30 MG/ML VIAL IVP SCH ×3 (05:23→18:17)
[2019-07-27] MEDS: Saccharomyces boulardii 250 MG CAP PO SCH (08:23)
[2019-07-27] MEDS: Famotidine 20 MG TAB PO SCH (08:24)
[2019-07-27] MEDS: Senokot S 8.6-50 MG TAB PO SCH (08:24)
[2019-07-27] MEDS: Ferrous Sulfate 325 MG TAB PO SCH ×2 (08:24→16:09)
[2019-07-27] MEDS: Ascorbic Acid 500 mg Chewable Tablet PO SCH (08:24)
[2019-07-27] MEDS: HYDROcodone/Acetaminophen 5/325 mg Tablet PO PRN ×2 (10:23→16:09)
[2019-07-27 11:37] VITALS: TEMP 98.6
[2019-07-27 15:27] VITALS: BP 125/82
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
== END 2019-07-27 18:55 | disposition home or self-care (01) | DRG 856 ==
LOC: ERS 10:41 → T4-A 12:54
PROVIDERS: ADMIT Internal Medicine; ATTEND Family Medicine
PROC: 0Q9H0ZZ Drainage of Left Tibia, Open Approach (ICD-10-PCS; principal; 2019-07-20)
PROC: 3E0V329 Introduction of Other Anti-infective into Bones, Percutaneous Approach (ICD-10-PCS; 2019-07-20)
PROC: 0Q9H0ZZ Drainage of Left Tibia, Open Approach (ICD-10-PCS; 2019-07-23)
PROC: 3E0V329 Introduction of Other Anti-infective into Bones, Percutaneous Approach (ICD-10-PCS; 2019-07-23)
PROC: 0YPB0YZ Removal of Other Device from Left Lower Extremity, Open Approach (ICD-10-PCS; 2019-07-23)
PROC: 02HV33Z Insertion of Infusion Device into Superior Vena Cava, Percutaneous Approach (ICD-10-PCS; 2019-07-23)
PROC: B548ZZA Ultrasonography of Superior Vena Cava, Guidance (ICD-10-PCS; 2019-07-23)
DX: T81.41XA Infection following a procedure, superficial incisional surgical site, initial encounter (principal); A41.53 Sepsis due to Serratia; A41.89 Other specified sepsis; L03.116 Cellulitis of left lower limb; L02.416 Cutaneous abscess of left lower limb; Y83.8 Other surgical procedures as the cause of abnormal reaction of the patient, or of later complication, without mention of misadventure at the time of the procedure; E66.9 Obesity, unspecified; E87.6 Hypokalemia; D50.9 Iron deficiency anemia, unspecified; I10 Essential (primary) hypertension; Z98.51 Tubal ligation status; Z79.82 Long term (current) use of aspirin; Z79.899 Other long term (current) drug therapy; Z68.38 Body mass index [BMI] 38.0-38.9, adult
CPT/HCPCS: 36415; 36430; 36569; 80048; 80053; 80202; 83605; 83735; 85014; 85018; 85025; 85049; 85652; 86140; 86850; 86900; 86901; 87040; 87070; 87077; 87186; 87205; 96365; 96366; 96367; 96375; C1713; C1751; J0696; J1644; J1650; J1885; J2001; J2185; J2250; J2270; J2405; J2704; J3010; J3260; J3370; J3480; J3490; J7030; P9016